=== PATIENT | male | born 1985 | race Caucasian/White ===

== ENCOUNTER → 2023-02-06 | Outpatient (CLI) | payer BC ==
[2023-02-06 09:02] LABS: Basophils # (auto) 0.1 10 ^3/uL (0-0.2); Basophils % (auto) 0.8 % (0.0-2.0); Eosinophils # (auto) 0.4 10 ^3/uL (0-0.8); Eosinophils % (auto) 3.8 % (0.0-7.0); Hematocrit 47.5 % (41.0-53.0); Hemoglobin 16.4 g/dL (13.5-17.5); Lymphocytes % (auto) 19.9 % (10.0-50.0); Mean Corpuscular Hemoglobin 29.9 pg (28.0-32.0); Mean Corpuscular Hgb Conc. 34.5 g/dL (32.0-36.0); Mean Corpuscular Volume 86.5 fL (80.0-100.0); Monocytes # (auto) 0.6 10 ^3/uL (0-1.3); Monocytes % (auto) 6.5 % (0.0-12.0); Neutrophils # (auto) 6.8 10 ^3/uL (1.6-8.6); Nucleated Red Blood Cells % 0.2 %; Red Blood Cells 5.49 10^6/uL (4.5-5.90); Red Cell Distribution Width 12.9 % (11.8-14.3); White Blood Cell 9.9 10^3/uL (4.4-10.8)
[2023-02-06 09:05] LABS: Urine Bacteria NONE SEEN /hpf (None Seen); Urine Blood Negative /uL (Negative); Urine Mucus FEW (None Seen); Urine Specific Gravity 1.028 (1.001-1.035); Urine WBC 4 /hpf (0 - 3)
[2023-02-06 10:07] LABS: Potassium 3.9 mmol/L (3.5-5.1)
[2023-02-06 10:36] LABS: Thyroid Stimulating Hormone 2.04 uIU/mL (0.358-3.74)
[2023-02-06 10:37] LABS: Albumin 3.9 g/dL (3.4-5.0); BUN/Creatinine Ratio 16.3 (10.0-20.0); Bilirubin, Total 0.8 mg/dL (0.2-1.0); Calcium 8.9 mg/dL (8.5-10.1); Total Protein 7.7 g/dL (6.4-8.2)
== END | disposition home or self-care (01) ==
LOC: LAB 08:34
PROVIDERS: ATTEND Internal Medicine
DX: K13.79 Other lesions of oral mucosa (principal)
CPT/HCPCS: 36415; 80053; 80061; 81001; 83615; 84439; 84443; 85025; 85652

== ENCOUNTER → 2025-02-12 | Outpatient (CLI) | payer BC ==
[2025-02-12 07:47] LABS: Urine Bacteria None Seen /hpf (None Seen)
[2025-02-12 08:25] LABS: Urine Blood Negative /uL (Negative); Urine Clarity Clear (Clear); Urine Color Yellow (Yellow); Urine Hyaline Cast FEW /lpf (0 - 2); Urine Mucus FEW (None Seen); Urine Protein, UAD TRACE (Negative); Urine Specific Gravity 1.028 (1.001-1.035); Urine Squamous Epithelial Cell None Seen /hpf (<5); Urine Urobilinogen Normal (Negative); Urine WBC 2 /HPF (0-3); Urine pH 5.5 (5.0-9.0)
[2025-02-12 08:27] LABS: Basophils # (auto) 0.1 10 ^3/uL (0-0.2); Basophils % (auto) 0.9 % (0.0-2.0); Eosinophils # (auto) 0.2 10 ^3/uL (0-0.8); Eosinophils % (auto) 3.3 % (0.0-7.0); Hematocrit 47.4 % (41.0-53.0); Hemoglobin 16.4 g/dL (13.5-17.5); Lymphocytes # (auto) 1.9 10 ^3/uL (0.4-5.4); Mean Corpuscular Hemoglobin 30.7 pg (28.0-32.0); Mean Corpuscular Hgb Conc. 34.5 g/dL (32.0-36.0); Mean Corpuscular Volume 88.8 fL (80.0-100.0); Monocytes # (auto) 0.5 10 ^3/uL (0-1.3); Monocytes % (auto) 6.3 % (0.0-12.0); Neutrophils # (auto) 4.6 10 ^3/uL (1.6-8.6); Neutrophils % (auto) 63.5 % (37.0-80.0); Nucleated Red Blood Cells % 0.2 %; Platelet Count (auto) 293 10^3/uL (140-450); Red Blood Cells 5.34 10^6/uL (4.5-5.90); White Blood Cell 7.3 10^3/uL (4.4-10.8)
[2025-02-12 08:31] LABS: Alanine Aminotransferase 13 U/L (7-40); Alkaline Phosphatase 66 U/L (46-116); Anion Gap 8 (5-15); Aspartate Aminotransferase 18 U/L (13-40); BUN/Creatinine Ratio 14.7 (10.0-20.0); Blood Urea Nitrogen 14 mg/dL (9-23); Carbon Dioxide 28 mmol/L (20-31); Chloride 102 mmol/L (98-107); Glucose 92 mg/dL (74-106); Sodium 138 mmol/L (136-145); Total Protein 7.9 g/dL (5.7-8.2); Triglycerides 88 mg/dL (< 150)
[2025-02-12 08:32] LABS: Bilirubin, Total 0.8 mg/dL (0.2-1.0)
[2025-02-12 08:33] LABS: Cholesterol 207 mg/dL (< 200); HDL Cholesterol 62 mg/dL (40-59); LDL Cholesterol 142 mg/dL (< 100)
[2025-02-12 08:58] LABS: Erythrocyte Sedimentation Rate 2 mm/hr (0-20)
[2025-02-13 08:07] LABS: Mumps IgG Antibody <9.0 AU/mL (Immune >10.9); Varicella Zoster IgG Antibody Reactive (Non Reactive)
== END | disposition home or self-care (01) ==
LOC: LAB 07:20
PROVIDERS: ATTEND Internal Medicine
DX: K06.8 Other specified disorders of gingiva and edentulous alveolar ridge (principal); Z00.00 Encounter for general adult medical examination without abnormal findings
CPT/HCPCS: 36415; 80053; 80061; 81001; 84439; 84443; 85025; 85652; 86706; 86735; 86762; 86765; 86787